=== PATIENT | female | born 1970 | race Caucasian/White ===

== ENCOUNTER 2016-06-06 00:44 | Emergency (ER) | payer MEDICARE, OTHER ==
[~2016-06-06] VITALS: Ht 157.5 cm; Wt 109.0 kg
[~2016-06-06 00:44] MED LIST: APIX5TAB PO; GABA300C3 PO; HYDR-3534 PO; LAMO150T PO; LANSPOW PO; LEVO.025 PO; LORTA5 PO; MELO15 PO; ORPH100T PO; ROPI0.25 PO; TIZA4 PO; TOPA25TA8 PO; TRAZ100 PO; ZOFR4TAB3 SL
[2016-06-06 02:26] VITALS: BP 139/83; PULSE 75; RESP 12; TEMP 97.6; O2SAT 95
== END 2016-06-06 02:00 | disposition left against medical advice (07) ==
LOC: PHED 00:44
DX: M79.89 Other specified soft tissue disorders (principal)
CPT/HCPCS: 99281